=== PATIENT | male | born 1945 | race Caucasian/White ===

== ENCOUNTER → 2025-03-12 07:30 | Outpatient (REF) | payer MEDICARE, OTHER, SELFPAY ==
[2025-03-12 09:44] LABS: ALT (SGPT) 25 U/L (0-50); AST (SGOT) 30 U/L (17-59); Albumin 4.3 g/dl (3.5-5.0); Alkaline Phosphatase 33 U/L (38-126); Blood Urea Nitrogen 16 mg/dl (9-20); Calcium 9.7 mg/dl (8.4-10.2); Carbon Dioxide 30 mmol/L (22-30); Chloride 107 mmol/L (98-107); Creatine Phosphokinase 259 U/L (55-170); Glucose 120 mg/dl (70-99); HDL Cholesterol 43 mg/dl; LDL Cholesterol, Calculated 88 mg/dl; Potassium 4.1 mmol/L (3.5-5.1); Sodium 142 mmol/L (135-145); Total Bilirubin 0.6 mg/dl (0.2-1.3); Total Cholesterol 146 mg/dl (50-199); Total Protein 6.9 g/dl (6.3-8.2); Triglyceride 76 mg/dl (10-149); Very Low Density Lipoprotein 15 mg/dl (0-30); eGFR > 60.00
[2025-03-12 10:27] LABS: Glycohemoglobin (HgbA1c) 6.1 % (4.0-5.6)
[2025-03-14 04:08] LABS: Aldolase 3.5 U/L (1.2-7.6)
== END ==
LOC: HWRAD 07:30
PROVIDERS: ATTENDING PHYSICIAN Internal Medicine Cardiovascular Disease; FAMILY PHYSICIAN Family Medicine; REFERRING PHYSICIAN Physician Assistant Medical
DX: J18.9 Pneumonia, unspecified organism (principal); R74.8 Abnormal levels of other serum enzymes; R73.9 Hyperglycemia, unspecified; E78.00 Pure hypercholesterolemia, unspecified
CPT/HCPCS: 36415; 71046; 80053; 80061; 82085; 82550; 83036

== ENCOUNTER → 2025-06-10 22:00 | Outpatient (REF) | payer MEDICARE, OTHER, SELFPAY | LOC: DHSLP 22:00 | PROVIDERS: ATTENDING PHYSICIAN Internal Medicine; FAMILY PHYSICIAN Nurse Practitioner Adult Health | DX: G47.33 Obstructive sleep apnea (adult) (pediatric) (principal) | CPT/HCPCS: 95800 ==

== ENCOUNTER → 2025-06-14 07:58 | Outpatient (REF) | payer MEDICARE, OTHER, SELFPAY ==
[2025-06-14 11:08] LABS: Glycohemoglobin (HgbA1c) 5.9 % (4.0-5.6)
[2025-06-14 12:00] LABS: ALT (SGPT) 31 U/L (0-50); AST (SGOT) 36 U/L (17-59); Albumin 4.2 g/dl (3.5-5.0); Alkaline Phosphatase 42 U/L (38-126); Blood Urea Nitrogen 13 mg/dl (9-20); Calcium 9.4 mg/dl (8.4-10.2); Carbon Dioxide 28 mmol/L (22-30); Chloride 105 mmol/L (98-107); Glucose 115 mg/dl (70-99); HDL Cholesterol 39 mg/dl; Potassium 4.1 mmol/L (3.5-5.1); Sodium 139 mmol/L (135-145); Total Protein 6.7 g/dl (6.3-8.2); eGFR > 60.00
[2025-06-14 12:52] LABS: LDL Cholesterol, Calculated 51 mg/dl; Very Low Density Lipoprotein 15 mg/dl (0-30)
== END ==
LOC: HWLAB 07:58
PROVIDERS: ATTENDING PHYSICIAN Nurse Practitioner Adult Health
DX: I10 Essential (primary) hypertension (principal); E78.5 Hyperlipidemia, unspecified; I25.10 Atherosclerotic heart disease of native coronary artery without angina pectoris; R73.03 Prediabetes
CPT/HCPCS: 36415; 80053; 80061; 83036